=== PATIENT | male | born 1935 | race Caucasian/White ===

== ENCOUNTER 2020-07-27 10:33 | Emergency (ER) | payer MEDICARE, SELFPAY ==
[2020-07-27 10:55] VITALS: BP 150/78; PULSE 87; RESP 15; TEMP 36.2; O2SAT 97; BMI 33.0
[2020-07-27 11:30] LABS: Add Manual Diff / Slide Review NO; Basophils Absolute Auto 0 /uL (0-100); Basophils Percent Auto 0.3 % (0-2); Eosinophils Absolute Auto 0 /uL (0-450); Eosinophils Percent Auto 0.2 % (2-4); Hematocrit 42.7 % (41-53); Hemoglobin 14.5 g/dL (13.5-17.5); Lymphocytes Absolute Auto 500 /uL (1100-4500); Mean Corpuscular HGB Conc 33.9 % (30-36); Mean Corpuscular Hemoglobin 33.5 PG (26-34); Mean Corpuscular Volume 98.9 fL (80-100); Monocytes Absolute Auto 800 /uL (0-900); Monocytes Percent Auto 9.5 % (3-14); Neutrophils Absolute Auto 7000 /uL (1500-7000); Platelet Count 178 X10^3/uL (150-400); Red Blood Cell Count 4.31 X10^6/uL (4.5-5.9); White Blood Cell Count 8.4 X10^3/uL (4.5-11.0)
[2020-07-27 11:36] LABS: Alanine Aminotransferase 25 IU/L (<50); Albumin 4.6 g/dL (3.5-5.0); Albumin Globulin Ratio 1.5 (1.0-2.8); Alkaline Phosphatase 82 U/L (38-126); Aspartate Aminotransferase 25 IU/L (17-59); BUN Creatinine Ratio 26.8 (6-22); Blood Urea Nitrogen 26 mg/dL (9-20); Calcium 9.5 mg/dL (8.4-10.2); Carbon Dioxide 26 mmol/L (22-32); Chloride 99 mmol/L (98-107); Creatine Kinase 122 U/L (55-170); Estimated Glomerular Filt Rate > 60.0 mL/min (>60); Globulin 3.1 g/dL (1.7-4.1); Glucose 140 mg/dL (80-110); HEMOLYSIS < 15 (0-50); Potassium 4.5 mmol/L (3.4-5.1); Sodium 134 mmol/L (137-145); Total Protein 7.7 g/dL (6.3-8.2)
[2020-07-27 11:47] LABS: Troponin I < 0.012 ng/mL (0.01-0.034)
[2020-07-27 12:00] LABS: CKMB % Relative Index 1.8 % (1.5-5.0); Creatine Kinase MB 2.17 ng/mL (<2.37)
[2020-07-27 12:53] LABS: Bacteria Urine None Seen
[2020-07-27 12:55] VITALS: BP 169/92; PULSE 99; RESP 18; O2SAT 97
--- NOTE | 2020-07-27 13:01 | PC.NURSE ---
Pt has large bruise to left lower thoracic area
[2020-07-27 13:06] LABS: Amorphous Sediment Urine 1+; Calcium Oxalate Crystals Urine Few; Culture Indicated Urine Cult Not Indicated; Mucus Urine 2+ (Negative); RBC Urine 1-5/HPF (0-5/HPF); Squamous Epithelial Cell Urine 0-1 /HPF (0-5/HPF); WBC Urine 0-1/HPF (0-5/HPF)
--- NOTE | 2020-07-27 13:08 | ED_ITS ---
HPI - General Adult General Chief complaint: Syncope Stated complaint: left flank pain injury last night Time Seen by Provider: 07/27/20 12:43 Source: patient Mode of arrival: Wheelchair Limitations: no limitations History of Present Illness HPI narrative: The patient resides in [place], [place]. He is stay locally with his son, helping care for his son currently. He was walking steps at his son's house yesterday, ongoing up the steps he became dizzy, he feels like he almost passed out. He stumbled backward, landing apparently against the railing. He has an injury to the left flank with extensive bruising. He has no head injury her or neck pain. He has no chest injury. He has increased reading, but denies dyspnea. He has no hemoptysis. He denies abdominal pain. He has had no nausea vomiting. He is not anticoagulated. He denies illness. He has had no fever, headache, sore throat or cough. Regarding the new syncopal event, he has had a couple similar episodes, not as severe. He has no true syncope. He has no history of arrhythmia no history of syncope, no neurologic history. He has knee injury in the left flank. He also injured his low back May 2020. His son was falling, he tried to help. He developed sudden low back pain that has persisted. He has not been evaluated. He has no incontinence. His no mom lower extremity motor sensory deficits. Related Data Previous Rx's Medication Instructions Recorded tramadol 50 mg PO Q6H PRN #20 tab 07/27/20 Allergies Allergy/AdvReac Type Severity Reaction Status Date / Time Sulfa (Sulfonamide Allergy Verified 07/27/20 11:05 Antibiotics) Review of Systems Constitutional Constitutional: Denies body ache(s), Denies chills, Reports fatigue, Denies fever(s), Denies frequent falls, Denies headache(s), Denies lethargy and Denies malaise Eyes Eyes: Denies change in vision ENT Ears, Nose, Mouth, and Throat: Denies vertigo, Reports dizziness, Denies hea dache(s), Reports disequilibrium and Denies sore throat Cardiovascular Cardiovascular: Denies chest pain, Reports syncope, Denies rapid heart rate, Denies irregular heart rhythm, Denies lightheadedness, Denies palpitations and Denies dyspnea Respiratory Respiratory: Denies cough, Denies dyspnea and Denies wheezing Gastrointestinal Gastrointestinal: Denies abdominal pain, Denies change in bowel habits, Denies diarrhea, Denies nausea and Denies vomiting Genitourinary Genitourinary: Denies urinary incontinence Genitourinary: Denies urinary incontinence Musculoskeletal Comments: Left flank pain. Low back pain. Integumentary/Breasts Skin/Breast: Denies pruritus, Denies erythema, Denies rash and Denies wounds Neurologic Neurologic: Denies confusion, Denies vertigo, Reports dizziness, Reports syncope, Denies frequent falls, Denies headache(s), Denies restless legs, Denies convulsions and Reports disequilibrium Psychiatric Psychiatric: Denies anxiety, Denies confusion and Denies depression Endocrine Endocrine: Reports fatigue and Denies palpitations Allergic/Immunologic Allergic/Immunologic: Denies wheezing Patient History Medical History (Updated 07/27/20 @ 15:20 by Faustino Connell MD) Unknown if patient has history of neurologic disorder Surgical History (Updated 07/27/20 @ 15:20 by Faustino Connell MD) No significant past surgical history Social History Smoking Status: Unknown if ever smoked Smoking Status: Unknown if ever smoked alcohol intake frequency: 0-2 drinks per day Substance Use Type: does not use Exam Initial Vital Signs Initial Vital Signs: Vital Signs Temperature 97.2 F L 07/27/20 10:55 Pulse Rate 87 07/27/20 10:55 Respiratory Rate 15 07/27/20 10:55 Blood Pressure 150/78 H 07/27/20 10:55 Pulse Oximetry 97 07/27/20 10:55 Const General: cooperative and well developed Nutritional Appearance: well nourished [facility] Head: normocephalic and atraumatic Nose: external nose normal Face and sinus: sinuses nontender and face symmetric Mouth: oral mucosae normal and moist mucous membranes Teeth and gingiva: dentition normal Throat: tonsils normal and uvula midline Neck Neck: normal visual inspection, trachea midline, No lymphadenopathy, No midline deformity and No JVD Lymphatic: No lymphedema Chest Chest: normal inspection of the chest Cardio Rate: regular rate Rhythm: regular rhythm Heart Sounds: S1 normal, S2 normal, no click, no gallops, no murmurs and no rubs Pulses: normal peripheral pulses GI Inspection: non-distended Palpation: soft, no hepatosplenomegaly, No guarding and No tender Auscultation: normal bowel sounds Back/Spine/Pelvis Other: Large needed contusion in the left mid back in the left flank along the costal margin. No crepitus. No bleeding. No palpable deformity. Palpable tenderness over the L5-S1 area, no palpable deformity. Skin General: no rashes or lesions noted, No jaundice and No petechiae Neuro General: patient alert, patient oriented x3, gait normal and no focal motor deficits Speech: speech normal Motor: muscle tone normal throughout Sensory Exam: no sensory deficits noted Other: Normal straight leg raises bilaterally. Normal knee jerk reflexes bilaterally. Normal gait. Extrem General: no clubbing, cyanosis or edema Other: Normal dorsalis pedis pulses. Course Course Course Narrative: His EKG and labs are reassuring. Ongoing monitor shows heart rate 90 is-100 range. His blood pressure stable. There is no obvious reason for near syncope, it is noted he is in lot of pain. He was treated for pain with morphine and we discharged on tramadol. The CT does not reveal any acute injury associated with yesterday's fall. However an L5 compression fracture is noted, likely associated with the event May 2020. This may be significant. He is referred to OrthoDr. De León locally. He does not live locally. He has follow-up with his doctor regarding the near syncope. He may also discuss seeing a back specialist in his area of living regarding follow-up care. Orders Ordered: ED Orders 07/27/20 11:04 EKG-12 Lead Stat 07/27/20 11:10 Complete Blood Count AUTO DIFF Stat Comprehensive Metabolic Panel Stat Troponin & CK Cardiac Panel Stat 07/27/20 12:50 Urine Microscopic Stat 07/27/20 14:06 CT chest abd pel w con Stat Sodium Chloride (Normal Saline 0.9%) 1,000 mls @ 200 mls/hr IV CONT FRANCISCO J Last Admin: 07/27/20 13:35 Dose: 200 mls/hr Documented by: ASHLIE Discontinued Medications Morphine Sulfate (Morphine 4 Mg/Ml Inj) 4 mg IV NOW ONE Stop: 07/27/20 13:28 Last Admin: 07/27/20 13:35 Dose: 4 mg Documented by: ASHLIE Vital Signs Vital signs: Vital Signs - 8 hr 07/27/20 10:55 07/27/20 12:55 Temperature 97.2 F L Pulse Rate 87 99 H Respiratory Rate 15 18 Blood Pressure 150/78 H 169/92 H Pulse Oximetry 97 97 Medical Decision Making Lab Data Result diagrams: 07/27/20 11:10 07/27/20 11:10 Labs: Lab Results 07/27/20 07/27/20 07/27/20 Range/Units 11:10 11:10 12:50 WBC 8.4 (4.5-11.0) X10^3/uL RBC 4.31 L (4.5-5.9) X10^6/uL Hgb 14.5 (13.5-17.5) g/dL Hct 42.7 (41-53) % MCV 98.9 (80-100) fL MCH 33.5 (26-34) PG MCHC 33.9 (30-36) % RDW 13.0 (11.6-14.8) % Plt Count 178 (150-400) X10^3/uL Neut % (Auto) 84.0 H (50-75) % Lymph % (Auto) 6.0 L (25-40) % [place] % (Auto) 9.5 (3-14) % Eos % (Auto) 0.2 L (2-4) % Baso % (Auto) 0.3 (0-2) % Neut # (Auto) 7000 (8662-9893) /uL Lymph # (Auto) 500 L (1109-4088) /uL [place] # (Auto) 800 (0-900) /uL Eos # (Auto) 0 (0-450) /uL Baso # (Auto) 0 (0-100) /uL Sodium 134 L (137-145) mmol/L Potassium 4.5 (3.4-5.1) mmol/L Chloride 99 (98-107) mmol/L Carbon Dioxide 26 (22-32) mmol/L BUN 26 H (9-20) mg/dL Creatinine 0.97 (0.66-1.25) mg/dL Estimated GFR > 60.0 (>60) mL/min BUN/Creatinine Ratio 26.8 H (6-22) Glucose 140 H (80-110) mg/dL Calcium 9.5 (8.4-10.2) mg/dL Total Bilirubin 1.0 (0.2-1.3) mg/dL AST 25 (17-59) IU/L ALT 25 (<50) IU/L Alkaline Phosphatase 82 (38-126) U/L Total Creatine Kinase 122 (55-170) U/L CK-MB (CK-2) 2.17 (<2.37) ng/mL CK-MB (CK-2) Rel Index 1.8 (1.5-5.0) % Troponin I < 0.012 (0.01-0.034) ng/mL Total Protein 7.7 (6.3-8.2) g/dL Albumin 4.6 (3.5-5.0) g/dL Globulin 3.1 (1.7-4.1) g/dL Albumin/Globulin Ratio 1.5 (1.0-2.8) Urine RBC 1-5/hpf (0-5/HPF) Urine WBC 0-1/hpf (0-5/HPF) Ur Squamous Epith Cells 0-1 /hpf (0-5/HPF) Calcium Oxalate Crystal Few H Amorphous Sediment 1+ Urine Bacteria None seen (None) Urine Mucus 2+ H (Negative) Ur Culture Indicated? Cult not indicated Point of Care Testing Glucose POC 127 Urine Dip Bedside Urine Glucose Negative Bedside Urine Bilirubin - Negative Bedside Urine Ketone - Negative Urine Specific [place] 1.030 Bedside Urine Occult Blood +/- Bedside Urine pH 6.0 Bedside Urine Protein +/- 15 Bedside Urine Urobilinogen - Negative Bedside Urine Nitrite - Negative Bedside Urine Leukocytes - Negative Esterase Point of care testing: Point of Care Testing Glucose POC 127 Urine Dip Bedside Urine Glucose Negative Bedside Urine Bilirubin - Negative Bedside Urine Ketone - Negative Urine Specific [place] 1.030 Bedside Urine Occult Blood +/- Bedside Urine pH 6.0 Bedside Urine Protein +/- 15 Bedside Urine Urobilinogen - Negative Bedside Urine Nitrite - Negative Bedside Urine Leukocytes - Negative Esterase Imaging Data Chest/abdomen/pelvis CT:: Radiologist's Impression: 169 Faustino Connlel MD Find Patient Imaging - Enrique Nunn 84 M 1935 ACTIVITY DATE EXAM STATUS AUTHOR 07/27/20 14:[address] [id number] Scan ReportSigned Patient: Enrique Nunn EMR#: [id number]: 1935cct:[id number]/Sex: 84 / MDate of Service: 07/27/20Loc: EDAccession Number: [id number] Procedure: CT chest abd pel w con Ordering Provider: Faustino Connell MD PROCEDURE: CT CHEST ABD PEL W CON INDICATIONS: Fall. Left flank injury. TECHNIQUE: After the administration of oral and intravenous contrast, 5 mm thick sections acquired from the lung apices to the symphysis. 5 mm coronal and sagittal reformats were performed, with additional 7 mm coronal MIP reformats through the lungs. For radiation dose reduction, the following was used: automated exposure control, adjustment of mA and/or kV according to patient size. COMPARISON: None. FINDINGS: Image quality: Excellent. CHEST: Lungs and pleura: No acute airspace opacities. No pleural effusions or pneumothorax. Central and peripheral airways appear patent and normal in caliber. Mediastinum: Heart size is normal. No pericardial effusion. No mediastinal or hilar adenopathy by size criteria. Thoracic aorta and central pulmonary arteries are normal in size. Esophagus is normal in caliber. No hiatal hernia. Chest wall: No axillary or supraclavicular adenopathy by size criteria. Thyroid gland appears normal. ABDOMEN: Solid organs: Liver is normal in size and enhancement. Gallbladder appears normal . Biliary system is non dilated. Pancreas enhances normally. Spleen is normal in size and enhancement. No adrenal nodules. Kidneys demonstrate normal size and enhancement, without hydronephrosis. There is a triangular calculus measuring up to 8 mm at the mid kidney on the left, nonobstructive, and elsewhere no urinary tract stone is found. Peritoneum and bowel: Bowel loops demonstrate normal wall thickness and caliber. No free fluid or air. Nodes and vessels: No retroperitoneal or mesenteric adenopathy by size criteria. Aorta and inferior vena cava are normal in size. Miscellaneous: No ventral hernias. PELVIS: Genitourinary: Bladder wall thickness is normal. Miscellaneous: No inguinal hernias or adenopathy. Bones: No suspicious bony lesions. No vertebral body compression fractures superiorly but there is a definite moderate compression fracture that appears likely acute at the L5 level, with an estimated 57% vertebral height reduction at the middle 3rd of the vertebral body of L5 when compared to that of L4. No significant retropulsion of bone fragments into the spinal canal or present. The compression fracture is more prominent at the superior endplate than the inferior endplate at this level.. IMPRESSION: No visceral injury found, note is made of a acute appearing moderate 57% vertebral height reduction compression fracture at L5 when compared to the level immediately above. There is mild surrounding edema, and also what appears to be no evidence of mass effect against the spinal canal. Note is made of an ovoid calyceal calculus measuring up to 8 mm at the posterior calyx of the left mid kidney. Dictated by: Tye Hooks M.D. on 07/27/2020 at 14:09 Approved by: Tye Hooks M.D. on 07/27/2020 at 14:14 ECG Data Attestation: I personally reviewed and interpreted this ECG as follows: (Sinus tachycardia rate 103 beats per minute. Normal intervals. No ectopy. No acute ST T wave changes. Cardiac monitoring has been normal sinus rhythm/mild sinus tachycardia since arrival.) Discharge Plan Departure Patient Disposition: Home Clinical Impression: Near syncope Contusion of flank and back Qualifiers: Encounter type: initial encounter Qualified Code(s): S30.1XXA - Contusion of abdominal wall, initial encounter Closed compression fracture of L5 vertebra Qualifiers: Encounter type: initial encounter Qualified Code(s): S32.050A - Wedge compression fracture of fifth lumbar vertebra, initial encounter for closed fracture Instructions: DI for Syncope in Adults (Fainting), Vertebral Compression Fracture Activity Restrictions/Additional Instructions: Apply ice packs to the injury to the left flank frequently for the next 2 days. Tylenol 2 tabs every 4 hours as needed for pain. Tramadol every 6 hours as needed for added pain control. I will give you contact information for Dr. Dori De León, she is a orthopedic surgeon who specializes in backs. Of recommend following up with her regarding the lumbar injury. You may also discuss consultation with your doctor in [place] regarding a back specialist. Follow-up with your doctor about your issue of almost passing out. Return here if symptoms like that return. Prescriptions: New tramadol 50 mg tablet 50 mg PO Q6H PRN (Reason: pain) Qty: 20 RF: 0 Referrals: Dori De León MD [Physician] -
[2020-07-27] MEDS: MORPHINE 4 MG/ML INJ IV (13:35)
[2020-07-27] MEDS: SODIUM CHLORIDE 0.9% 1,000 ML 200 ML IV (13:35)
--- NOTE | 2020-07-27 14:06 | DI.CT.S_ITS ---
PROCEDURE: CT CHEST ABD PEL W CON INDICATIONS: Fall. Left flank injury. TECHNIQUE: After the administration of oral and intravenous contrast, 5 mm thick sections acquired from the lung apices to the symphysis. 5 mm coronal and sagittal reformats were performed, with additional 7 mm coronal MIP reformats through the lungs. For radiation dose reduction, the following was used: automated exposure control, adjustment of mA and/or kV according to patient size. COMPARISON: None. FINDINGS: Image quality: Excellent. CHEST: Lungs and pleura: No acute airspace opacities. No pleural effusions or pneumothorax. Central and peripheral airways appear patent and normal in caliber. Mediastinum: Heart size is normal. No pericardial effusion. No mediastinal or hilar adenopathy by size criteria. Thoracic aorta and central pulmonary arteries are normal in size. Esophagus is normal in caliber. No hiatal hernia. Chest wall: No axillary or supraclavicular adenopathy by size criteria. Thyroid gland appears normal. ABDOMEN: Solid organs: Liver is normal in size and enhancement. Gallbladder appears normal . Biliary system is non dilated. Pancreas enhances normally. Spleen is normal in size and enhancement. No adrenal nodules. Kidneys demonstrate normal size and enhancement, without hydronephrosis. There is a triangular calculus measuring up to 8 mm at the mid kidney on the left, nonobstructive, and elsewhere no urinary tract stone is found. Peritoneum and bowel: Bowel loops demonstrate normal wall thickness and caliber. No free fluid or air. Nodes and vessels: No retroperitoneal or mesenteric adenopathy by size criteria. Aorta and inferior vena cava are normal in size. Miscellaneous: No ventral hernias. PELVIS: Genitourinary: Bladder wall thickness is normal. Miscellaneous: No inguinal hernias or adenopathy. Bones: No suspicious bony lesions. No vertebral body compression fractures superiorly but there is a definite moderate compression fracture that appears likely acute at the L5 level, with an estimated 57% vertebral height reduction at the middle 3rd of the vertebral body of L5 when compared to that of L4. No significant retropulsion of bone fragments into the spinal canal or present. The compression fracture is more prominent at the superior endplate than the inferior endplate at this level.. IMPRESSION: No visceral injury found, note is made of a acute appearing moderate 57% vertebral height reduction compression fracture at L5 when compared to the level immediately above. There is mild surrounding edema, and also what appears to be no evidence of mass effect against the spinal canal. Note is made of an ovoid calyceal calculus measuring up to 8 mm at the posterior calyx of the left mid kidney. Dictated by: Tye Hooks M.D. on 07/27/2020 at 14:09 Approved by: Tye Hooks M.D. on 07/27/2020 at 14:14
[2020-07-27 15:06] VITALS: BP 168/72; PULSE 100; RESP 16; TEMP 36.6; O2SAT 96
== END 2020-07-27 15:35 | disposition home or self-care (01) ==
PROVIDERS: Nurse Practitioner Family; Emergency Provider Emergency Medicine
DX: R55 Syncope and collapse (principal); S30.1XXA Contusion of abdominal wall, initial encounter; S32.050A Wedge compression fracture of fifth lumbar vertebra, initial encounter for closed fracture; M54.5 Low back pain; R42 Dizziness and giddiness; R00.0 Tachycardia, unspecified; W19.XXXA Unspecified fall, initial encounter
CPT/HCPCS: 36415; 71260; 74177; 80053; 81003; 81015; 82550; 82553; 82962; 84484; 85025; 93005; 96361; 96374; 99284; 99285; J2270; Q9967